=== PATIENT | male | born 1950 | race Caucasian/White ===

== ENCOUNTER 2022-05-08 11:56 | Outpatient (REF) | payer MEDICARE, SELFPAY ==
--- NOTE | ~2022-05-08 | XR_ITS ---
EXAMINATION: XR CHEST CLINICAL INFORMATION: Cough COMPARISON: None TECHNIQUE: 2 views of the chest were obtained. FINDINGS: Lungs are well-inflated and clear with exception of linear opacity of minimal atelectasis or scar of the superior lingula. Trachea is midline in position. No interstitial disease, consolidation or mass. No pleural effusion or pneumothorax. Cardiac silhouette and pulmonary vessels are normal in size. The mediastinum and monserrat have normal contour. Mild multilevel discovertebral degenerative change of the thoracolumbar spine. XR/XR chest 2V IMPRESSION: No acute cardiopulmonary abnormality. No evidence of pneumonia.
== END 2022-05-08 11:57 | disposition home or self-care (01) ==
LOC: HO.HMGCX 11:56
PROVIDERS: Visit Provider Physician Assistant
DX: R05.9 Cough, unspecified (principal)
CPT/HCPCS: 71046

== ENCOUNTER 2022-07-24 13:58 | Outpatient (REF) | payer MEDICARE, SELFPAY ==
--- NOTE | ~2022-07-24 | XR_ITS ---
EXAMINATION: XR THORACIC SPINE CLINICAL INFORMATION: Pain COMPARISON: None available. TECHNIQUE: 3 views of the thoracic spine were obtained. FINDINGS: Bone alignment is normal. No fracture or dislocation. There is multilevel degenerative spondylosis greatest in the lower thoracic spine. Disc spaces are normal. Paraspinal soft tissues are normal. Surgical tack or anchor is seen projecting over one of the humeral heads on the swimmer's view. XR/XR thoracic spine 3V IMPRESSION: Degenerative changes.
== END 2022-07-24 13:59 | disposition home or self-care (01) ==
LOC: HO.HMGCX 13:58
PROVIDERS: Visit Provider Physician Assistant
DX: M54.6 Pain in thoracic spine (principal)
CPT/HCPCS: 72072

== ENCOUNTER 2022-10-31 13:08 | Outpatient (AMB) | payer MEDICARE, SELFPAY ==
--- NOTE | 2022-10-31 13:09 | MHC.OFFWIV ---
Intake Vital Signs 10/31/22 13:10 Height 5 ft 11 in Weight 181 lb BMI 25.2 BP 122/70 Blood Pressure Location Rt brachial Position Sitting Pulse 87 Pulse Source Pulse Oximeter Temp 97.4 F Temp Source Temporal Artery Scan Pulse Oximetry (%) 95 Oxygen Delivery Method Room Air Intake Visit Reasons: EP, Cough Intake Note: Pt is here c/o persistent cough for the last two weeks. Patient Tobacco Use Status: Former Tobacco user Allergies No Known Allergies Allergy (Verified 11/02/22 17:04) Medication List - Last Reconciled 11/02/22 by Alejandro Alvarez MD No Known Home Meds Do you need a note to return to daycare/school/sports/work: No HPI EP, Cough HPI Details 72-year-old male presents to the office for a sick visit. He is complaining of a nonproductive cough for the past 3 weeks. Symptoms are worse at night. Not associated with any shortness of breath or wheezing. No fevers or chills. PFS Social History Patient Tobacco Use Status: Former Tobacco user Physical Exam Vital Signs: Last Vital Signs Temp 97.4 F 10/31/22 13:10 Pulse 87 10/31/22 13:10 BP 122/70 10/31/22 13:10 Pulse Ox 95 10/31/22 13:10 Oxygen Delivery Method Room Air 10/31/22 13:10 BMI result Body Mass Index 25.2 Const General: cooperative and healthy appearing Nutritional Appearance: well nourished Orientation/consciousness: patient oriented x3 Limitations: no limitations HEENT Head: Yes normal to inspection Eyes General: appearance normal, both eyes and all related structures Neck Neck: Yes normal visual inspection Chest Chest palpation & inspection: normal palpation of entire chest wall Resp Effort & Inspection: normal respiratory effort Neuro General: patient oriented x3 Assessment & Plan Assessment & Plan (1) Cough: Code(s): R05.9 - Cough, unspecified Plan: X-ray images were personally reviewed by me. No infiltrate seen. Patient was reassured. No medications provided. Orders: Orders XR chest 2V 10/31/22 R05.9 - Cough, unspecified Coding Level of Care Code Est Pt Level 3 (12491) Diagnoses Cough R05.9
[2022-10-31 13:10] VITALS: BP 122/70; PULSE 87; TEMP 36.3; O2SAT 95; BMI 25.2
== END 2022-10-31 14:32 | disposition home or self-care (01) ==
PROVIDERS: PCP Internal Medicine; Visit Provider Internal Medicine
DX: R05.9 Cough, unspecified (principal)
CPT/HCPCS: 99213

== ENCOUNTER 2022-10-31 13:39 | Outpatient (REF) | payer MEDICARE, SELFPAY ==
--- NOTE | ~2022-10-31 | XR_ITS ---
EXAMINATION: XR CHEST CLINICAL INFORMATION: Cough. COMPARISON: 04/30/2022 chest radiographs. TECHNIQUE: 2 views of the chest were obtained. FINDINGS: No significant abnormality is noted involving the heart, lungs, mediastinum, bony thorax or soft tissues. XR/XR chest 2V IMPRESSION: No acute cardiopulmonary process.
== END 2022-10-31 13:40 | disposition home or self-care (01) ==
LOC: HO.HMGCX 13:39
PROVIDERS: Visit Provider Internal Medicine
DX: R05.9 Cough, unspecified (principal)
CPT/HCPCS: 71046

== ENCOUNTER 2024-01-21 10:40 | Outpatient (AMB) | payer MEDICARE, SELFPAY ==
--- NOTE | 2024-01-21 10:54 | MHC.OFFVIS ---
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 The patient did undergo left shoulder surgery several years ago. He states that he re-injured his shoulder approximately 1 year ago while lifting a heavy object. Since that time he has had difficulty lifting his left hand above shoulder height. Has done physical therapy which aggravated his pain. He has also tried Tylenol and anti-inflammatory medicines which gave him minimal relief. He has failed the last 6 weeks of conservative treatment. The patient describes his knee pains as achy in nature. He denies any locking or giving way. Allergies No Known Allergies Allergy (Verified 01/21/24 10:58) Medication List - Last Reconciled 01/22/24 by Aldair Meraz MD No Known Home Meds [facility] Social History Patient Tobacco Use Status: Former Tobacco user Physical Exam Const Other: Well-nourished well-developed very friendly male awake alert and oriented x3 in no acute distress Extrem Other: Bilateral upper extremity examination shows good capillary refill, no skin lesions noted, normal sensation light touch Left shoulder examination shows decreased range of motion when compared to his right shoulder, 4+ out of 5 strength with supraspinatus testing, positive impingement signs, tenderness over his acromioclavicular joint, no instability Bilateral knee examination shows minimal effusions, mild crepitus with range of motion, no instability Results Reviewed Results Reviewed: X-rays of the patient's bilateral knee show mild diffuse joint space narrowing, no acute bony abnormalities X-rays of the patient's left shoulder taken previously show severe acromioclavicular joint narrowing, a type 2 acromion, no acute bony abnormalities Assessment & Plan Assessment & Plan (1) Left shoulder pain: Code(s): M25.512 - Pain in left shoulder Category: Medical Plan Mr. Graves presents with progressively worsening left shoulder pain and weakness possibly due to a full-thickness rotator cuff tear. Thus, I will send the patient for an MRI of his left shoulder for further evaluation. I will see him back once the MRI is completed to discuss the findings and treatment options. The patient also has intermittent bilateral knee discomfort due to early degenerative joint disease. At this point the patient's knee discomfort is tolerable to him. We will hold off on a cortisone injection. Feel free to call me at any time should questions regarding his orthopedic management arise. I spent 21 minutes in reviewing the patient's records and imaging studies, seeing the patient and documenting in the medical record. Orders: Orders XR knee LT 3V 01/21/24 M25.562 - Pain in left knee MR shoulder LT wo con Today M25.512 - Pain in left shoulder XR knee RT 3V 01/21/24 M25.561 - Pain in right knee Coding Level of Care Code Est Pt Level 3 (28675) Complex EM visit Add On G2211 Diagnoses Left shoulder pain M25.512
== END 2024-01-21 11:28 | disposition home or self-care (01) ==
PROVIDERS: PCP Internal Medicine; Visit Provider Orthopaedic Surgery
DX: M25.512 Pain in left shoulder (principal)
CPT/HCPCS: 99213; G2211

== ENCOUNTER 2024-01-21 14:15 | Outpatient (REF) | payer MEDICARE, SELFPAY | END 2024-01-21 14:16 | disposition home or self-care (01) | LOC: HO.HOSX 14:15 | PROVIDERS: Visit Provider Orthopaedic Surgery | DX: M25.562 Pain in left knee (principal); M25.561 Pain in right knee; M25.512 Pain in left shoulder | CPT/HCPCS: 73562; 99212 ==

== ENCOUNTER 2024-02-27 07:23 | Outpatient (REF) | payer MEDICARE, SELFPAY ==
--- NOTE | ~2024-02-27 | MR_ITS ---
EXAMINATION: MR SHOULDER WITHOUT CONTRAST LEFT CLINICAL INFORMATION: Pain in left shoulder M25.512. COMPARISON: None available. TECHNIQUE: MRI of the shoulder without contrast was performed on a high-field scanner. FINDINGS: ROTATOR CUFF: Postsurgical change consistent with supraspinatus tendon repair. Thickening and heterogeneity of the supraspinatus tendon, consistent with a combination of tendinosis and postsurgical change. Along the posterior aspect of the supraspinatus tendon and in the region of the junctional fibers, there appears to be focal bursal surface partial tearing measuring 0.7 cm in AP dimension. Correlate for surgical history. Mild subscapularis tendinosis. No muscle atrophy or fatty infiltration. BICEPS: Intact. CORACOACROMIAL ARCH: The undersurface of the acromion is attenuated, consistent with acromioplasty distal clavicular resection. LABRUM/CAPSULE: No displaced labral tear. Intact inferior joint capsule. GLENOHUMERAL JOINT/MARROW: Mild glenohumeral articular cartilage signal heterogeneity with tiny marginal osteophytes. No marrow edema or evidence of acute osseous injury. Trace glenohumeral joint effusion. MR/MR shoulder LT wo con IMPRESSION: 1. Postsurgical change consistent with supraspinatus tendon repair. Thickening and heterogeneity of the supraspinatus tendon, consistent with a combination of tendinosis and postsurgical change. Focal bursal surface partial tearing along the posterior aspect of the supraspinatus tendon and junctional fibers. Correlate for surgical history. Mild subscapularis tendinosis. 2. Prior acromioplasty and distal clavicular resection. 3. Mild glenohumeral arthrosis and trace joint effusion. Electronically signed by: Car Tate MD 03/02/2024 10:32 AM EST
== END 2024-02-27 07:24 | disposition home or self-care (01) ==
LOC: HO.MRI 07:23
PROVIDERS: Visit Provider Orthopaedic Surgery
DX: M25.512 Pain in left shoulder (principal)
CPT/HCPCS: 73221

== ENCOUNTER 2024-03-09 13:23 | Outpatient (AMB) | payer MEDICARE, SELFPAY ==
--- NOTE | 2024-03-09 13:30 | MHC.OFFVIS ---
Intake Visit Reasons: OV- Left Shoulder MRI Review Intake Note: Jacek is a 73 year old male who presents with complaints of intermittent left shoulder pain. The patient did undergo left shoulder surgery several years ago. He states that he re-injured his shoulder approximately 1 year ago while lifting a heavy object. Has done physical therapy which aggravated his pain. He has also tried Tylenol and anti-inflammatory medicines which gave him mild relief. Allergies No Known Allergies Allergy (Verified 03/09/24 13:33) Medication List - Last Reconciled 03/09/24 by Aldari Meraz MD No Known Home Meds [facility] Social History Patient Tobacco Use Status: Former Tobacco user Physical Exam Const Other: Well-nourished well-developed very friendly male awake alert and oriented x3 in no acute distress Extrem Other: Bilateral upper extremity examination shows good capillary refill, no skin lesions noted, normal sensation light touch Left shoulder examination shows full range of motion when compared to his right shoulder, 4+ out of 5 strength with supraspinatus testing, positive impingement signs, tenderness over his acromioclavicular joint, no instability Results Reviewed Results Reviewed: MRI of the patient's left shoulder shows a type 3 acromion, severe acromioclavicular joint narrowing, signal change within the supraspinatus tendon most likely due to rotator cuff tendinosis versus partial-thickness tearing, no full-thickness tear noted Assessment & Plan Assessment & Plan (1) Left shoulder pain: Code(s): M25.512 - Pain in left shoulder Category: Medical Plan Jacek presents with intermittent left shoulder discomfort due to impingement syndrome and rotator cuff tendinosis. I had a lengthy discussion with the patient regarding the treatment options. At this point his symptoms are tolerable to him. He will continue with his activity modifications. He will follow up with me on an as-needed basis should his symptoms worsen in any right. Feel free to call me at any time should questions regarding his orthopedic management arise. I spent 20 minutes in reviewing the patient's records and imaging studies, seeing the patient and documenting in the medical record. Coding Level of Care Code Est Pt Level 3 (25074) Complex EM visit Add On G2211 Diagnoses Left shoulder pain M25.512
== END 2024-03-09 14:08 | disposition home or self-care (01) ==
PROVIDERS: PCP Internal Medicine; Visit Provider Orthopaedic Surgery
DX: M25.512 Pain in left shoulder (principal)
CPT/HCPCS: 99213; G2211

== ENCOUNTER → 2024-03-09 13:23 | Outpatient (BNVA) | payer MEDICARE, SELFPAY | PROVIDERS: PCP Internal Medicine; Visit Provider Orthopaedic Surgery | DX: M25.512 Pain in left shoulder (principal) | CPT/HCPCS: 99212 ==

== ENCOUNTER 2024-04-30 09:15 | Outpatient (AMB) | payer MEDICARE, SELFPAY ==
--- NOTE | 2024-04-30 09:21 | AM.OFFWIN_ITS ---
Intake Vital Signs 04/30/24 09:25 Weight 184 lb BP 126/80 Blood Pressure Location Rt brachial Position Sitting Pulse 74 Pulse Source Pulse Oximeter Pulse Oximetry (%) 98 Oxygen Delivery Method Room Air Intake Visit Reasons: EP b/l ear block/clogged Intake Note: Patient here for bilat ear blockage. Patient Tobacco Use Status: Former Tobacco user Allergies No Known Allergies Allergy (Verified 04/30/24 09:25) Do you need a note to return to daycare/school/sports/work: No HPI HPI Comments History of Present Illness Details 73 y/o male patient who presents to the walk in clinic with c/o B/L ear blockage. [facility] Social History Patient Tobacco Use Status: Former Tobacco user Review of Systems Const All systems reviewed & are unremarkable except as noted in HPI and below Physical Exam Vital Signs: Last Vital Signs Pulse 74 04/30/24 09:25 BP 126/80 04/30/24 09:25 Pulse Ox 98 04/30/24 09:25 Oxygen Delivery Method Room Air 04/30/24 09:25 Const General: cooperative and no acute distress Orientation/consciousness: patient oriented x3 HEENT Head: Yes normocephalic Ears: external ears normal and TM abnormal with fluid behind the TM on the right and obstructed by cerumen on the left General nose exam: Normal external nose present and No nasal discharge present Face and sinus: Yes normal facial exam Mouth: moist mucous membranes Neuro General: patient oriented x3 Office Procedures Cerumen Removal From which ear canal was the cerumen removed: left Removal: irrigation Notes: patient tolerated procedure well 46744-Ysm Irrigation/Lavage Assessment & Plan Assessment & Plan (1) Impacted cerumen of left ear: Code(s): H61.22 - Impacted cerumen, left ear Plan: Ordered Left Ear Lavage Unable to clear Wax Left ear Ordered Debrox Ear drops to be used for 7 days. Medications: New isopropyl alcohol in glycerin 95-5 % (Debrox Swimmer's Ear) 5 drps otic (ear) left DAILY 30 mL 0RF H61.22 - Impacted cerumen, left ear Coding Level of Care Code Est Pt Level 4 (97666) Diagnoses Impacted cerumen of left ear H61.22 CPT Codes Office Procedure - CPT: 16911-Orr Irrigation/Lavage ([id number]) Time Spent (min) 20
[2024-04-30 09:25] VITALS: BP 126/80; PULSE 74; O2SAT 98
--- OUTSIDE RECORDS SUMMARY | 2024-04-30 09:58 | XMS_ITS | Clinical Summary ---
Author Organization [address] [facility] Address [address] [place] [address] Phone Care Team Providers Care Extracorporeal Circulation Specialist Name Role Phone Nik Crespo MD Primary Care Provider Allergies No known active allergies Medications sildenafiL (VIAGRA) 100 mg tablet 50 mg once daily as needed 1 hour before sexual activity; may be taken up to 4 hours before sexual activity. May increase to a maximum dose of 100 mg once daily if there is incomplete response. Active Active Problems Problem Noted Date Diagnosed Date Tubular adenoma of colon 12/11/2023 Dupuytren's contracture 05/19/2023 Elevated LFTs 12/07/2022 Immunizations Name Administration Dates Next Due Influenza trivalent, 0.5mL ( Fluzone High-dose) 65yo and older 12/07/2022 Influenza, Unspecified 12/10/2023 [employer] SARS-CoV-2 COVID-19, mRNA, LNP-S, preservative free 01/21/2023,01/11/2021,06/10/2020,2020 Pneumococcal conjugate 20 va lent (Prevnar 20, PCV 20) 2mo and older 12/10/2023 Tdap Tetanus diptheria acell ular pertussis (Boostrix; Adacel) 7yo and older 12/10/2023 Zoster recombinant (Shingrix ) 19yo and older 04/27/2021,11/25/2020 Surgical History Surgery Date Site/Laterality Comments SHOULDER SURGERY PROCEDURE: HISTORICAL SHOULDER SURGERY; COMMENT: bilateral rotator cuff CHOLECYSTECTOMY PROCEDURE: HISTORICAL CHOLECYSTECTOMY UMBILICAL HERNIA REPAIR PROCEDURE: LAP UMBILICAL HERNIA REPAIR Medical History Medical History Date Comments Kidney stones DX:Kidney stones Elevated LFTs DX:Elevated LFTs Family History Medical History Relation Name Comments Nicotine Dependence Brother 1 motor cy hunter accident, lung cancer No Known Problems Brother 2 No Known Problems Brother 3 No Known Problems Daughter 1 No Known Problems Daughter 2 No Known Problems Daughter 3 Alcohol abuse Father cirrhosis No Known Problems Maternal Grandfather No Known Problems Maternal Grandmother No Known Problems Mother No Known Problems Paternal Grandfather No Known Problems Paternal Grandmother Relation Name Status Comments Brother 1 Brother 2 Alive Brother 3 Alive Daughter 1 Alive Daughter 2 Alive Daughter 3 Alive Father Maternal Grandfather Maternal Grandmother Mother Paternal Grandfather Paternal Grandmother Social History Tobacco Use Types Packs/Day Years Used Date Smoking Tobacco: Former Smokeless Tobacco: Never Alcohol Use Standard Drinks/Week Comments Yes 0.8 (1 standard drink = 0.6 oz p ure alcohol) Sex and Gender Information Value Date Recorded Sex Assigned at Not on file Legal Sex Male 8:47 PM EST Gender Identity Not on file Sexual Orientation Not on file Obstetrics History Last Filed Vital Signs Vital Sign Reading Time Taken Comments Blood Pressure 138/80 12/10/2023 8:56 AM EDT Pulse 70 12/10/2023 8:56 AM EDT Temperature - - Respiratory Rate - - Oxygen Saturation - - Inhaled Oxygen Concentration - - Weight 79.4 kg (175 lb) 01/17/2024 10:35 AM EST Height 180.3 cm (5' 11 ) 01/17/2024 10:35 AM EST Body Mass Index 24.41 01/17/2024 10:35 AM EST Plan of Treatment Upcoming Encounters Date Type Department Care Team (Late st Contact Info) Description 10/16/2024 9:00 AM EDT Office Visit Orthopedic Surgery - [place] [address] [phone] Elisa Mann MD [address] [phone] Health Maintenance Due Date Last Done Comments Colorectal Cancer Screening: Colonoscopy 02/21/2022 Depression Screening 02/21/2022 Falls Risk Assessment 02/21/2022 Hepatitis C Screening 02/21/2022 Medicare Annual Wellness Visit 02/21/2022 Social Influencers of Health Screening 02/21/2022 RSV Immunization Patients 60+ Years Old (1 - 1-dose 75+ series) 09/24/2023 COVID-19 Vaccine ( season) 2023 01/21/2023, 03/23/2022, 01/11/2021, Additional history exists Cholesterol Screening (Lipid Panel) 12/10/2028 12/11/2023 DTaP,Tdap,and Td Vaccines (2 - Td or Tdap) 12/09/2033 12/10/2023 Zoster Vaccines Completed 04/27/2021, 11/25/2020 Abdominal Aortic Aneurysm (AAA) Screen Completed 12/13/2022, 12/13/2022 Influenza Vaccine Completed 12/10/2023, , 01/05/2022, Additional history exists Pneumococcal Vaccine: 50+ Years Completed 12/10/2023 HIB Vaccines Aged Out No longer eligi ble based on patient's age to complete this topic HPV Vaccines Aged Out No longer eligi ble based on patient's age to complete this topic Hepatitis A Vaccines Aged Out No long er eligible based on patient's age to complete this topic Hepatitis B Vaccines Aged Out No long er eligible based on patient's age to complete this topic IPV Vaccines Aged Out No longer eligi ble based on patient's age to complete this topic MMR Vaccines Aged Out No longer eligi ble based on patient's age to complete this topic Meningococcal ACWY Vaccine Aged Out N o longer eligible based on patient's age to complete this topic Meningococcal B Vacine Aged Out No lo nger eligible based on patient's age to complete this topic RSV Immunization Patients Under 20 months Aged Out No longer eligible based on patient's age to complete this topic Varicella Vaccines Aged Out No longer eligible based on patient's age to complete this topic Procedures Procedure Name Priority Date/Time Associated Diagnosis Comments US ABDOMINAL AORTA REAL TIME SCREEN STUDY AAA Routine 12/13/2022 8:32 AM EDT Encounter for screening for cardiovascular disorders from Last 3 Months or Most Recently Relevant to Health Maintenance Results * US ABDOMINAL AORTA REAL TIME SCREEN STUDY AAA (12/13/2022 8:32 AM EDT) Anatomical Region Laterality Modality Ultrasound 12/07/2022 10:5 5 AM EDT Narrative 12/13/2022 1:40 PM EDT Abdominal ultrasound. History screening for AAA. No prior studies are available for comparison. There is no evidence of AAA. ??Proximal aorta measures 2.5 cm, mid aorta measures 2 cm, distal aorta measures 1.9 cm. ??Proximal common iliac arteries measure 9 mm each. CONCLUSIONS: No evidence of AAA. Procedure Note Hallie Carrion MD - 04/16/2023 Abdominal ultrasound. History screening for AAA. No prior studies are available for comparison. There is no evidence of AAA. Proximal aorta measures 2.5 cm, mid aortameasures 2 cm, distal aorta measures 1.9 cm. Proximal common iliac arteries measure 9 mmeach. CONCLUSIONS: No evidence of AAA. 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
--- OUTSIDE RECORDS SUMMARY | 2024-04-30 09:58 | XMS_ITS | Clinical Summary ---
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 0 07/04/2020 Active sildenafil (VIAGRA) 100 MG tablet Take 100 mg by mouth daily as needed. 0 07/31/2020 Active oxyCODONE-acetaminophen (PERCOCET) 5-325 MG per tablet 0 01/02/2021 Active Active Problems Problem Noted Date Diagnosed Date Overuse syndrome of lower leg, left, subsequent encounter 10/06/2020 Patellofemoral arthritis of left knee 06/30/2020 Social History Tobacco Use Types Packs/Day Years Used Date Smoking Tobacco: Never Assessed Sex and Gender Information Value Date Recorded Sex Assigned at Not on file Gender Identity Not on file Sexual Orientation Not on file Job Start Date Occupation Industry Not on file Not on file Not on file Last Filed Vital Signs Vital Sign Reading Time Taken Comments Blood Pressure - - Pulse - - Temperature - - Respiratory Rate - - Oxygen Saturation - - Inhaled Oxygen Concentration - - Weight 81.6 kg (180 lb) 10/06/2020 9:13 AM EDT Height 180.3 cm (5' 11 ) 10/06/2020 9:13 AM EDT Body Mass Index 25.1 10/06/2020 9:13 AM EDT Plan of Treatment Health Maintenance Due Date Last Done Comments Hepatitis C Screening 1950 COVID-19 Vaccine (#1) 03/26/1951 Depression Screening 1960 Preventative Health Evaluation 1966 DTap / Tdap / Td (1 - Tdap) 09/24/1967 Colon Cancer Screening (Colonoscopy) 1993 Shingrix-Zoster Vaccine (1 of 2) 1998 Fall Risk Assessment 2013 Pneumococcal Vaccine (1 of 1 - PCV) 2013 RSV Adult > 60+ Yrs or Pregn ant (1 - 1-dose 75+ series) 09/24/2023 Influenza Vaccine (#1) 2023 Hepatitis B Vaccines Aged Out No long er eligible based on patient's age to complete this topic RSV Ped < 20 months Aged Out No longe r eligible based on patient's age to complete this topic Care Teams Steam And Gas Turbine Assembler Relationship Specialty Start Date End Date Cb Juarez MD [address] [facility] [address] [place] [address] PCP - General Internal Medicine 06/20/20
== END 2024-04-30 10:21 | disposition home or self-care (01) ==
PROVIDERS: PCP Internal Medicine; Visit Provider Nurse Practitioner Family
DX: H61.22 Impacted cerumen, left ear (principal)

== ENCOUNTER → 2024-04-30 09:15 | Outpatient (BNVA) | payer MEDICARE, SELFPAY | PROVIDERS: PCP Internal Medicine | DX: H61.22 Impacted cerumen, left ear (principal) | CPT/HCPCS: 69209; 99212 ==

== ENCOUNTER 2024-05-07 09:12 | Outpatient (AMB) | payer MEDICARE, SELFPAY ==
--- NOTE | 2024-05-07 09:59 | AM.OFFWIN_ITS ---
Intake Vital Signs 05/07/24 10:20 Height 5 ft 11 in Weight 184 lb BMI 25.7 BP 126/80 Blood Pressure Location Rt brachial Position Sitting Pulse 78 Pulse Source Pulse Oximeter Pulse Oximetry (%) 98 Oxygen Delivery Method Room Air Intake Visit Reasons: EP ear blockage LT Intake Note: Patient here for left earr blockage. Patient Tobacco Use Status: Former Tobacco user Allergies No Known Allergies Allergy (Verified 05/07/24 10:21) Do you need a note to return to daycare/school/sports/work: No HPI HPI Comments History of Present Illness Details 73 y/o male patient who presents to the walk in clinic with c/o left Ear Blockage. He has been using Debrox Drops for the past 7 days with minimal relief. [facility] Social History Patient Tobacco Use Status: Former Tobacco user Review of Systems Const All systems reviewed & are unremarkable except as noted in HPI and below Physical Exam Vital Signs: Last Vital Signs Pulse 78 05/07/24 10:20 BP 126/80 05/07/24 10:20 Pulse Ox 98 05/07/24 10:20 Oxygen Delivery Method Room Air 05/07/24 10:20 BMI result Body Mass Index 25.7 Const General: cooperative and no acute distress Orientation/consciousness: patient oriented x3 HEENT Head: Yes normocephalic Ears: external ears normal, TM normal on the right and TM abnormal obstructed by cerumen on the left Neuro General: patient oriented x3 Office Procedures Cerumen Removal From which ear canal was the cerumen removed: left Removal: irrigation Notes: patient tolerated procedure well [id number] Irrigation/Lavage Assessment & Plan Assessment & Plan (1) Impacted cerumen of left ear: Code(s): H61.22 - Impacted cerumen, left ear Plan: Irrigated Left Ear Drum. Partial relief, unable to completely evacuate all the Cerumen from left ear. Pt was uncomfortable to continue. Advised to f/u with PCP for ENT referral. Coding Level of Care Code Est Pt Level 4 (49094) Diagnoses Impacted cerumen of left ear H61.22 CPT Codes Office Procedure - CPT: 02466-Ntj Irrigation/Lavage ([id number]) Time Spent (min) 20
--- NOTE | 2024-05-07 09:59 | AM.OFFVISMDC ---
Intake Intake Visit Reasons: EP ear blockage LT Allergies No Known Allergies Allergy (Verified 04/30/24 09:25) PFSH Social History Patient Tobacco Use Status: Former Tobacco user Coding
--- OUTSIDE RECORDS SUMMARY | 2024-05-07 10:03 | XMS_ITS | Clinical Summary ---
Author Organization [facility] Address [address] [place] [address] Care Team Providers Care Seat Joiner Chainstitch Name Role Phone Cb Juarez MD Primary Care Provider [phone]- [phone] Allergies No known active allergies Medications Medication [...] age to complete this topic Care Teams Seat Joiner Chainstitch Relationship Specialty Start Date End Date Cb Juarez MD [address] [facility] [address] [place] [address] PCP - General Internal Medicine 06/20/20
--- OUTSIDE RECORDS SUMMARY | 2024-05-07 10:03 | XMS_ITS | Clinical Summary ---
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
[2024-05-07 10:20] VITALS: BP 126/80; PULSE 78; O2SAT 98; BMI 25.7
== END 2024-05-07 11:11 | disposition home or self-care (01) ==
PROVIDERS: PCP Internal Medicine; Visit Provider Nurse Practitioner Family
DX: H61.22 Impacted cerumen, left ear (principal)

== ENCOUNTER → 2024-05-07 09:12 | Outpatient (BNVA) | payer MEDICARE, SELFPAY | PROVIDERS: PCP Internal Medicine | DX: H61.22 Impacted cerumen, left ear (principal) | CPT/HCPCS: 69209; 99212 ==

== ENCOUNTER 2025-02-08 09:31 | Outpatient (AMB) | payer MEDICARE, SELFPAY ==
--- NOTE | 2025-02-08 09:38 | AM.OFFWIN_ITS ---
Intake Vital Signs 02/08/25 09:40 Height 5 ft 11 in Weight 179 lb BMI 25.0 BP 130/64 Blood Pressure Location Lt brachial Position Sitting Pulse 66 Pulse Source Pulse Oximeter Temp 97.7 F Temp Source Oral Pulse Oximetry (%) 99 Oxygen Delivery Method Room Air Intake Visit Reasons: EP stomach pain alot of acid buildup Intake Note: pt presents with low abdominal pain waking him up every morning at 5am, slightly constipated with passing stools QOD with black solid stool about 5 weeks. pt reports pshx of cholecystectomy Patient Tobacco Use Status: Former Tobacco user Allergies No Known Allergies Allergy (Verified 02/08/25 09:46) Do you need a note to return to daycare/school/sports/work: No HPI HPI Comments History of Present Illness Details History of Present Illness - The patient is a 74 year old individua l presenting for evaluation of lower abdominal pain and change in bowel habits. - Symptoms began approximately five week s ago, characterized by lower abdominal pain that feels like gas and is relieved by flatulence or defecation. - This pain awakens the patient from sle ep every morning between 5:00 and 6:00 AM. - The patient, who is normally regular w ith loose stools daily or twice daily, reports a change in bowel habits. - The patient now sometimes goes one day without a bowel movement, with the stool being harder on the second day, and experiences a sensation of incomplete evacuation. - Approximately three days ago, the bruce ent noticed dark stools but also reports taking Tums. - The patient denies nausea, vomiting, b loody stools, burning with urination, or blood in the urine. - The patient had a few days of poor dipesh etite with some weight loss, but the appetite has since returned to normal. - Past medical history is notable for a cholecystectomy 12 years ago, with no issues since. - The patient takes Vitamin A and is not on any other medications. - He has no pain and it does feel better when passing gas. - He denies fever, diarrhea, n/v, melena or hematochezia. - He has no hemorrhoids. Physical Exam General: Cooperative, healthy appearing, comfortable, no acute distress and well developed Orientation: Patient oriented x3 Limitations: No limitations Respiratory: Normal respiratory effort and able to speak in complete sentences. Clear to auscultation bilaterally Cardiovascular: Regular rate and rhythm. Normal S1 and S2 GI: Hypoactive BS noted. Soft, non-distended. No TTP in all 4 quadrants. No guarding or rebound tenderness noted. Negative [place]. Negative Rovsing noted. Negative CVA tenderness noted. Skin: No rashes or lesions noted Patient was informed and verbally consented to the use of an ambient scribe for clinic note documentation during this visit. [facility] Social History Patient Tobacco Use Status: Former Tobacco user Review of Systems Const All systems reviewed & are unremarkable except as noted in HPI and below Physical Exam Vital Signs: Last Vital Signs Temp 97.7 F 02/08/25 09:40 Pulse 66 02/08/25 09:40 BP 130/64 02/08/25 09:40 Pulse Ox 99 02/08/25 09:40 Oxygen Delivery Method Room Air 02/08/25 09:40 BMI result Body Mass Index 25.0 Assessment & Plan Assessment & Plan (1) Lower abdominal pain: Code(s): R10.30 - Lower abdominal pain, unspecified (2) Constipation: Code(s): K59.00 - Constipation, unspecified Qualifiers: Constipation type: unspecified constipation type Qualified Code(s): K59.00 - Constipation, unspecified Plan Most likely constipation plan - The patient's symptoms are attributed to constipation - Encouraged him to drink lots of fluids - A stool softener, such as Senna, was prescribed to be taken at night to promote a morning bowel movement. - Counseled the patient on increasing dietary fiber with foods like beans and broccoli, and maintaining adequate water intake. - If symptoms worsen or do not resolve with these measures, further evaluation with a colonoscopy may be considered. - follow up with PCP Medications: New sennosides-docusate sodium 8.6-50 mg (Colace 2-In-1) 1 tab-cap PO BEDTIME 30 ta bs 0RF Coding Level of Care Code Est Pt Level 3 (47809) Diagnoses Lower abdominal pain R10.30 Constipation, unspecified constipation type K59.00 Constipation type: unspecified constipation type
[2025-02-08 09:40] VITALS: BP 130/64; PULSE 66; TEMP 36.5; O2SAT 99; BMI 25.0
--- OUTSIDE RECORDS SUMMARY | 2025-02-08 11:13 | XMS_ITS | Clinical Summary ---
Author Organization [facility] Address [address] [place] [address] Care Team Providers Care Accounts Payable Or Receivable Clerk Name Role Phone Cb Juarez MD Primary Care Provider +1- [phone] Allergies No known active allergies Medications Medication [...] Tdap / Td (1 - Tdap) 09/24/1967 Shingrix-Zoster Vaccine (1 of 2) 1998 Fall Risk Assessment 2013 Pneumococcal Vaccine (1 of 1 - PCV) 2013 RSV Adult > 60+ Yrs or Pregn ant (1 - 1-dose 75+ series) 09/24/2023 Influenza Vaccine (#1) 2024 Hepatitis B Vaccines Aged Out No long er eligible based on patient's age to complete this topic RSV Ped < 20 months Aged Out No longe r eligible based on patient's age to complete this topic Care Teams Accounts Payable Or Receivable Clerk Relationship Specialty Start Date End Date Cb Juarez MD [address] [facility] [address] [place] [address] PCP - General Internal Medicine 06/20/20
--- OUTSIDE RECORDS SUMMARY | 2025-02-08 11:13 | XMS_ITS ---
Author Name [facility] Organization Unknown Encounters Encounter Type Encounter Reason Primary Diagnosis Location Date Ambulatory [facility] 11/13/2022 Ambulatory [facility] 10/25/2022 Ambulatory [facility] [place] 09/20/2022 Ambulatory [facility] [place] 08/17/2022 Care Team Organization Name Specialty Phone Email Start Date End Da te [facility] FLAVIO TAVERAS Primary Care 08/17/2022 10/28/2023
== END 2025-02-08 11:14 | disposition home or self-care (01) ==
PROVIDERS: PCP Internal Medicine; Visit Provider Physician Assistant Medical
DX: R10.30 Lower abdominal pain, unspecified (principal); K59.00 Constipation, unspecified

== ENCOUNTER → 2025-02-08 09:31 | Outpatient (BNVA) | payer MEDICARE, SELFPAY | PROVIDERS: PCP Internal Medicine; Visit Provider Physician Assistant Medical | DX: R10.30 Lower abdominal pain, unspecified (principal); K59.00 Constipation, unspecified | CPT/HCPCS: 99212 ==